=== PATIENT | female | born 1990 | race Caucasian/White ===

== ENCOUNTER 2018-02-11 03:52 | Inpatient (IN) | payer OTHER ==
[~2018-02-11] VITALS: Ht 157.5 cm; Wt 68.9 kg
[2018-02-11] MEDS ORDERED: PRENATAL 19 TA1 EAC1 PO (04:56)
== END 2018-02-14 15:25 | DRG 775 ==
LOC: LDR 03:52 → OB/GYN 02-12 15:51
PROC: 0UQGXZZ Repair Vagina, External Approach (ICD-10-PCS; principal; 2018-02-11)
PROC: 10E0XZZ Delivery of Products of Conception, External Approach (ICD-10-PCS; 2018-02-11)
PROC: 4A1HXCZ Monitoring of Products of Conception, Cardiac Rate, External Approach (ICD-10-PCS; 2018-02-11)
PROC: 3E033VJ Introduction of Other Hormone into Peripheral Vein, Percutaneous Approach (ICD-10-PCS; 2018-02-11)
DX: O71.4 Obstetric high vaginal laceration alone (principal); O42.02 Full-term premature rupture of membranes, onset of labor within 24 hours of rupture; Z3A.39 39 weeks gestation of pregnancy; Z37.0 Single live birth

== ENCOUNTER → 2020-01-13 | Outpatient (CLI) | payer OTHER ==
[~2020-01-13] MED LIST: PRENATAL 19 TA1 EAC1 PO
== END | disposition home or self-care (01) ==
LOC: PRENATAL 11:00
PROVIDERS: ATTEND Obstetrics & Gynecology Maternal & Fetal Medicine
DX: O35.0XX1 Maternal care for (suspected) central nervous system malformation in fetus, fetus 1 (principal); O36.80X1 Pregnancy with inconclusive fetal viability, fetus 1; O98.512 Other viral diseases complicating pregnancy, second trimester; Z36.89 Encounter for other specified antenatal screening; Z3A.22 22 weeks gestation of pregnancy

== ENCOUNTER 2020-05-07 06:06 | Inpatient (IN) | payer OTHER ==
[~2020-05-07] VITALS: Ht 157.5 cm; Wt 68.9 kg
[2020-05-07] MEDS ORDERED: SYNTHROID75 MCG PO (07:11)
== END 2020-05-10 13:45 | disposition home or self-care (01) | DRG 788 ==
LOC: OB/GYN 06:06 → LDR 06:06 → OB/GYN 05-08 22:14
PROVIDERS: ADMIT Obstetrics & Gynecology; ATTEND Obstetrics & Gynecology
PROC: 3E033VJ Introduction of Other Hormone into Peripheral Vein, Percutaneous Approach (ICD-10-PCS; 2020-05-07)
PROC: 3E0P7VZ Introduction of Hormone into Female Reproductive, Via Natural or Artificial Opening (ICD-10-PCS; 2020-05-07)
PROC: 10907ZC Drainage of Amniotic Fluid, Therapeutic from Products of Conception, Via Natural or Artificial Opening (ICD-10-PCS; 2020-05-07)
PROC: 4A1HXFZ Monitoring of Products of Conception, Cardiac Rhythm, External Approach (ICD-10-PCS; 2020-05-07)
PROC: 10D00Z1 Extraction of Products of Conception, Low, Open Approach (ICD-10-PCS; principal; 2020-05-08 19:00)
DX: O61.0 Failed medical induction of labor (principal); O24.429 Gestational diabetes mellitus in childbirth, unspecified control; O99.824 Streptococcus B carrier state complicating childbirth; Z3A.38 38 weeks gestation of pregnancy; Z37.0 Single live birth